=== PATIENT | female | born 1935 | race Caucasian/White ===

== ENCOUNTER → 2016-12-17 | Outpatient (CLI) | payer BC ==
[~2016-12-17] MED LIST: COEN1CAP28 PO; HYDR-5688 PO; LEVO25TA5 PO; MULT-506 PO; OMEG10007 PO; SYN75 PO; VTMD1000 PO; [UNRECOGNIZED DRUG - REMARK] PO; statin drug PO
--- NOTE | 2016-12-18 12:53 | MAMMOGRAPHY REPORT ---
BILATERAL DIGITAL SCREENING MAMMOGRAM WITH CAD: 12/17/2016 CLINICAL HISTORY: Routine screening. Patient has no complaints. TECHNIQUE: Current study was also evaluated with a Computer Aided Detection (CAD) system. Bilatera l CC and MLO views were obtained. COMPARISON: Comparison is made to exams dated: 12/17/2015 mammogram, 12/14/2014 mammogram, 12/13/2013 mammogram, 12/12/2012 mammogram, 12/09/2010 mammogram, and 12/10/2011 mammogram - [facility]. BREAST COMPOSITION: There are scattered areas of fibroglandular density in both breasts. FINDINGS: There is a nodular 5 mm asymmetry seen within the right superior posterior breast on the MLO view only, which could represent an intramammary lymph node although spot compression tomosynthe sis views and possible breast ultrasound are recommended for further evaluation. Additionally, ther e is a questionable area of architectural distortion seen anterior to the asymmetry on the MLO view, for which spot compression tomosynthesis views and possible breast ultrasound are recommended. The remainder of both breasts are stable compared to prior exams, without suspicious masses, calcifi cations, or areas of architectural distortion noted. Bilateral benign-appearing calcifications are not significantly changed. IMPRESSION: ACR BI-RADS CATEGORY 0: INCOMPLETE EVALUATION: NEED ADDITIONAL IMAGING EVALUATION Right breast asymmetry and possible architectural distortion, for which additional imaging evaluatio n is recommended. The patient will be called to schedule an appointment. Approximately 10% of breast cancers are not detected with mammography. A negative mammographic repor t should not delay biopsy if a clinically suggestive mass is present. Irish Hernadez M.D. /:12/17/2016 16:43:16 Meter/Relay Technician: Agueda ANDERSON(R)(M), [facility] letter sent: Addl Imaging 0 BI-RADS Code: ACR BI-RADS Category 0: Incomplete Evaluation: Need Additional Imaging Evaluation
== END | disposition home or self-care (01) ==
LOC: C.MAMM 08:53
PROVIDERS: ATTEND Obstetrics & Gynecology
DX: Z12.31 Encounter for screening mammogram for malignant neoplasm of breast (principal); N64.89 Other specified disorders of breast

== ENCOUNTER → 2016-12-24 | Outpatient (CLI) | payer BC ==
--- NOTE | 2016-12-24 12:55 | MAMMOGRAPHY REPORT ---
UNILATERAL RIGHT DIGITAL DIAGNOSTIC MAMMOGRAM TOMOSYNTHESIS AND TARGETED RIGHT ULTRASOUND: 12/24/2016 CLINICAL HISTORY: 81-year-old woman called back from screening mammography for a 5 mm asymmetry and p ossible architectural distortion in the upper outer quadrant of the right breast. TECHNIQUE: Spot compression right CC and MLO to the digital and tomosynthesis images were obtained. COMPARISON: Comparison is made to exams dated: 12/17/2016 mammogram, 12/17/2015 mammogram, 12/14/2014 m ammogram, 12/13/2013 mammogram, 12/12/2012 mammogram, and 12/10/2011 mammogram - [facility]. BREAST COMPOSITION: There are scattered areas of fibroglandular density in the right breast. FINDINGS: There is persistence of a well-circumscribed, 5.2 x 3.1 mm mass with central lucent notch in the superior posterior right breast on the spot compression MLO view that has the mammographic harry earance of an intramammary lymph node. Further evaluation with ultrasound was performed. 16 mm ante rior to the probable lymph node is persistent architectural distortion with central 6 mm nodularity v ersus mass, and further evaluation with ultrasound was also performed for this finding. No other foc al area of architectural distortion or suspicious microcalcifications are seen in the visualized righ t breast. Targeted ultrasound was performed in the upper outer quadrant of the right breast extending to the ax illa. In the 9:30 axis, 67 m from the nipple, there is a hypoechoic irregular shadowing mass measuri ng 4.0 x 5.0 x 4.1 mm. Subtle architectural distortion is appreciated. Slightly inferior and latera l to the shadowing mass is a morphologically normal lymph node measuring 4.9 mm with a thin cortex me asuring 0.6 mm. This is located in the 9:00 axis, 7 cm from the nipple. Throughout the rest of the visualized right axilla, morphologically normal lymph nodes are seen without suspicious adenopathy. IMPRESSION: ACR BI-RADS CATEGORY 4C: MODERATE SUSPICION FOR MALIGNANCY, TARGETED ULTRASOUND ACR BI-R ADS CATEGORY 4C: MODERATE SUSPICION FOR MALIGNANCY 1. The 5 mm nodular asymmetry in the superior posterior right breast, best seen on the MLO view is t hought to correlate with a morphologically normal intramammary lymph node. Other morphologically nor mal lymph nodes are identified in the right axilla on ultrasound. 2. However, there is a suspicious ill-defined hypoechoic 5mm shadowing mass with associated architec tural distortion in the 9:30 right breast (correlating with the possible architectural distortion see n mammographically) for which ultrasound-guided core needle biopsy is recommended. These results and recommendations were discussed with the patient at the time of the exam. She tenta tively scheduled the right breast biopsy prior to leaving our department. Approximately 10% of breast cancers are not detected with mammography. A negative mammographic report should not delay biopsy if a clinically suggestive mass is present. Savannah Pimentel M.D. ay/:12/24/2016 12:35:00 Wire Brush Maker: Shauna ANDERSON(R)(M), [facility] letter sent: Abnormal 4/5 BI-RADS Code: ACR BI-RADS Category 4C: Moderate Suspicion For Malignancy Ultrasound BI-RADS: ACR BI- RADS Category 4C: Moderate Suspicion For Malignancy
== END | disposition home or self-care (01) ==
LOC: C.MAMM 09:48
PROVIDERS: ATTEND Obstetrics & Gynecology
DX: N64.9 Disorder of breast, unspecified (principal); N63 Unspecified lump in breast

== ENCOUNTER 2017-01-18 07:47 | Observation (INO) | payer BC ==
[2017-01-12 12:49] VITALS: BMI 24.0
[2017-01-12 13:07] LABS: BASO % 0.7 %; BASO ABS # 0.03 K/uL (0-0.2); COMPLETE YES; EOS % 0.9 %; HEMATOCRIT 40.8 % (37-47); LYMPH % 16.5 %; MEAN CELL VOLUME 92.3 fL (80-100); MEAN CORPUSCULAR HEMOGLOBIN 31.2 pg (25-34); MEAN CORPUSCULAR HGB CONC 33.8 g/dl (32-36); MEAN PLATELET VOLUME 9.7 fL (7.4-10.4); MONO % 9.7 %; NEUT % 72.2 %; PLATELET COUNT 225 K/uL (130-400); RED BLOOD COUNT 4.42 M/uL (4.2-5.4); WHITE BLOOD COUNT 4.24 K/uL (4.8-10.8)
--- NOTE | 2017-01-12 13:21 | PAT Medication Instructions ---
Service Date Jan 12, 2017. Current Home Medication List Cholecalciferol (Vitamin D3), 1 TAB PO QAM Coenzyme Q10 (Ubidecarenone) (Co Q10), 1 CAP PO QAM Fish Oil (Otter-3), 1 CAP PO QAM Levothyroxine Sodium (Levothyroxine Sodium), 1 TAB PO QAM Multivitamin (Multivitamin), 1 TAB PO QAM [statin drug], 1 TAB PO QAM Medication Instructions For Your Scheduled Surgery - Continue as directed: [statin drug], 1 TAB PO QAM on Tuesdays - Hold the following medications 2 weeks prior to surgery: Coenzyme Q10 (Ubidecarenone) (Co Q10), 1 CAP PO QAM Fish Oil (Otter-3), 1 CAP PO QAM - Hold the following medications the morning of surgery: Multivitamin (Multivitamin), 1 TAB PO QAM Cholecalciferol (Vitamin D3), 1 TAB PO QAM - Take the following medications the morning of surgery with a sip of water: Levothyroxine Sodium (Levothyroxine Sodium), 1 TAB PO QAM If you have any questions please call us at [phone] or [phone] or [phone]
[2017-01-12 13:36] LABS: BUN/CREATININE RATIO 20.3 (10-20); POTASSIUM 4.5 mmol/L (3.5-5.1)
[2017-01-12 13:39] LABS: CALCIUM 9.5 mg/dl (8.5-10.1)
[2017-01-18] VITALS (8 sets, daily range): BP systolic 135–174; BP diastolic 54–81; PULSE 63–87; TEMP 36.4–36.8; O2SAT 94–96; Ht 160 cm; Wt 61.0 kg
[~2017-01-18] VITALS: Ht 160 cm; Wt 61.0 kg
[~2017-01-18 07:47] MED LIST changes: +CEFAZOLIN 2000 MG/60 ML D5W 60 ML IV SCH; -HYDR-5688 PO; +LACTATED RINGER'S 1000ML 1,000 ML IV SCH; -SYN75 PO; -[UNRECOGNIZED DRUG - REMARK] PO
[2017-01-18] MEDS ORDERED: BUPIVACAINE 0.5 % 5 MG/1 ML MPF 30ML VIAL ONE (09:14)
--- NOTE | 2017-01-18 09:51 | History & Physical Bridge Note ---
H&P Re-Evaluation Bridge Note: I have examined the patient, reviewed the History & Physical and in the interval since the performance of the History & Physical I have noted the following changes of clinical significance: No changes noted
[2017-01-18] MEDS ORDERED: MIDAZOLAM HCL 1 MG/ML 2ML VIAL ONE (10:00)
[2017-01-18] MEDS ORDERED: LIDOCAINE HCL 2% 2 ML VIAL (20MG/ML) ONE (10:00)
[2017-01-18] MEDS ORDERED: PROPOFOL IV EMULSION 10 MG/ML 20 ML VIAL IV ONE (10:00)
[2017-01-18] MEDS ORDERED: FENTANYL CITRATE INJ 50 MCG/1 ML 2 ML VIAL ONE (10:00)
[2017-01-18] MEDS ORDERED: METHYLENE BLUE 0.5% 10 ML VIAL ONE (10:04)
--- NOTE | 2017-01-18 10:17 | DIAGNOSTIC IMAGING REPORT ---
RIGHT BREAST LYMPHOSCINTIGRAPHY CLINICAL HISTORY: Right breast cancer. COMPARISON STUDY: Diagnostic right mammogram December 30, 2016. PROCEDURE: Right breast lymphoscintigraphy was performed. The procedure, risks and benefits were discussed with the patient and informed consent was obtained. The procedure was performed by Dr. Taylor. Skin of the right periareolar region was prepped. A total of 0.504 mCi of Lymphoseek was injected in 5 intradermal aliquots within a right periareolar distribution. No imaging was requested at this time. The patient tolerated the procedure well and no immediate complications were evident. IMPRESSION: Right breast lymphoscintigraphy, as described above. Electronically signed by: Puma Taylor M.D. 01/18/2017 10:16 AM Dictated Date/Time: 01/18/2017 10:14 AM
[2017-01-18] MEDS ORDERED: EpHEDrine SULFATE 50MG/5ML SYR ONE (10:32)
[2017-01-18] MEDS ORDERED: DEXAMETHASONE SOD INJ 4 MG/ML VIAL ONE (10:32)
[2017-01-18] MEDS ORDERED: ONDANSETRON INJ 2 MG/ML 2 ML VIAL ONE (10:32)
[2017-01-18] MEDS ORDERED: KETOROLAC TROMETHAMINE 30 MG/ML VIAL ONE (11:11)
[2017-01-18] MEDS ORDERED: LACTATED RINGER'S 1000ML 1,000 ML IV SCH (11:20)
--- NOTE | 2017-01-18 11:20 | [facility] Post Operative Brief Note ---
Immediate Operative Summary Operative Date Jan 18, 2017. Pre-Operative Diagnosis Rt breast cancer Post-Operative Diagnosis same Procedure(s) Performed Right Breast Lumpectomy with Needle Localization and Right [place] Lymph Node Biopsy Surgeon Dr. Jesse Ca Instrument Designer Surgeon(s) Talha Cárdenas PA-C Estimated Blood Loss 10 cc Findings 2 SLNs - negative Specimens Rt breast tissue and additional deep tissue SLNs Anesthesia gen Complication(s) None Disposition Recovery Room / PACU
[2017-01-18] MEDS ORDERED: HYDROCODONE/ACETAMOPHEN 5/325MG TAB PO PRN ×2 (11:30)
[2017-01-18] MEDS ORDERED: ONDANSETRON INJ 2 MG/ML 2 ML VIAL IV PRN (11:30)
[2017-01-18] MEDS ORDERED: MoRPHine SULFATE 4 MG/ML 1 ML CARP\\VIAL IV PRN (11:30)
[2017-01-18] MEDS ORDERED: MoRPHine SULFATE 2 MG/ML CARP IV PRN (11:30)
--- NOTE | 2017-01-18 11:50 | Anesthesiology Progress Note ---
Anesthesia Post Op Note Date & Time Jan 18, 2017 at 11:49 Vital Signs Pain Intensity: 0 Vital Signs Past 12 Hours Date Time Temp Pulse Resp B/P (MAP) Pulse Ox O2 Delivery O2 Flow Rate FiO2 01/18/17 11:41 163/82 01/18/17 11:39 65 13 100 01/18/17 11:39 66 13 01/18/17 11:36 163/84 01/18/17 11:34 67 16 100 01/18/17 11:34 66 16 01/18/17 11:31 156/82 01/18/17 11:30 148/81 01/18/17 11:29 71 3 01/18/17 11:29 71 3 100 01/18/17 11:29 36.0 71 16 148/81 100 Mask 10 01/18/17 09:22 36.8 66 20 171/73 (105) 96 Room Air Notes Mental Status: alert / awake / arousable, participated in evaluation Pt Amnestic to Procedure: Yes Nausea / Vomiting: adequately controlled Pain: adequately controlled Airway Patency, RR, SpO2: stable & adequate BP & HR: stable & adequate Hydration State: stable & adequate Anesthetic Complications: no major complications apparent
--- NOTE | 2017-01-18 12:21 | OPERATIVE REPORT ---
DATE OF OPERATION: 01/18/2017 PREOPERATIVE DIAGNOSIS: Right breast cancer. POSTOPERATIVE DIAGNOSIS: Same. NAME OF OPERATION: Needle localization right partial mastectomy and sentinel lymph node biopsy. STAFF SURGEON: Dr. Ca. ANESTHESIA: General. ASSISTANTS: Hernesto Cárdenas PA-C. PROCEDURE: The patient was brought in the operating room and placed on the operating table in supine position. The patient's right breast and axilla were prepped and draped in usual fashion. She had been injected for sentinel lymph node biopsy. Incision was made in the right axilla carrying dissection down trying to follow the activity of the probe finding 2 lymph nodes which were felt to be the sentinel lymph nodes. These were removed and sent for frozen section. Frozen section was negative on both nodes. There were no other significant reactive nodes found. At this point during the frozen section, elliptical incision was made around the needle which was lateral in the right breast carrying dissection down around the needle and deep into the breast. The tissue was excised. It was right breast tissue. It was marked with the needle and skin lateral, short silk suture superior, long silk suture inferior and methylene blue on the new deep margin. Additional tissue was taken which included superior, inferior tissue on the deep portion of the site. This tissue was marked with a short silk suture superiorly, long silk suture inferior and then methylene blue was on the new deep margin. Clips were placed and then the deep tissue reapproximated using 2-0 plain catgut suture as well as axilla. Axilla was closed using 4-0 nylon for the skin. The breast tissue was closed by reapproximating the skin with subcuticular 4-0 Monocryl and Steri-Strips. The patient was transferred to recovery room in stable condition. I attest to the content of the Intraoperative Record and any orders documented therein. Any exception s are noted below.
--- NOTE | 2017-01-18 13:17 | MAMMOGRAPHY REPORT ---
NEEDLE LOCALIZATION RIGHT BREAST: 01/18/2017 CLINICAL HISTORY: 81 year-old woman with recent biopsy-proven breast cancer in the 9:30 right breast. She presents for preoperative needle and wire localization prior to surgical excision. COMPARISON: Comparison is made to exams dated: 12/30/2016 mammogram, 12/30/2016 ultrasound biopsy, 017 ultrasound, 12/24/2016 mammogram, 12/17/2016 mammogram, and 12/17/2015 mammogram - [facility] [place]. PATIENT CONSENT: The risks of the procedure were explained to the patient and informed consent was ob tained. The patient denied eating or drinking anything this morning that would preclude anesthesia. She denied allergy to lidocaine. Postprocedure mammograms after the ultrasound-guided core biopsy dated 12/30/2016 were reviewed. The biopsy marker clip and focal area of distortion are the intended target for preoperative localizatio n. With the patient in the left lateral decubitus position, and right arm extended above head, repea t targeted ultrasound was performed in the 9:30 right breast. An ill-defined hypoechoic mass is agai n seen in the 9:30 right breast with associated ribbon-shaped marker clip. This is the target for pr eoperative localization. The skin of the right breast was cleansed with Betadine. 1% buffered lidocaine without epinephrine w as administered as local anesthesia. A 5 cm Ward 2 needle and wire combination was inserted throu gh the hypoechoic mass and the wire was locked in place. The heel of the pablo was located along the posterior aspect of the mass. Post-localization 2-D digital and tomosynthesis images were obtained. There is alignment with the lo calizing needle and wire with the biopsy marker clip to the level of the heel of the pablo. The proce dure including approach and needle length were discussed with the operating surgeon prior to surgery. The specimen radiograph demonstrates the localizing needle and wire, a focal area of architectural di stortion and a ribbon-shaped metallic biopsy marker, compatible with successful preoperative localiza tion and subsequent surgical excision. IMPRESSION: NEEDLE LOCALIZATION Status post successful preoperative needle localization for the biopsy proven right breast carcinoma. The imaged specimen includes the intended abnormalities. Savannah Pimentel M.D. ay/:01/18/2017 11:09:31 Graphic User Interface Designer: Alicia Castillo, [facility]
--- NOTE | 2017-01-18 13:17 | MAMMOGRAPHY REPORT ---
UNILATERAL RIGHT DIGITAL DIAGNOSTIC MAMMOGRAM TOMOSYNTHESIS: 01/18/2017 CLINICAL HISTORY: 81 year-old woman with recent biopsy proven cancer in the 9:30 right breast. Patie nt presents for preoperative localization. Please refer to the report from right breast ultrasound-guided needle localization performed at the s gabrielle time for full detail. IMPRESSION: Please refer to the report from right breast ultrasound-guided needle localization performed at the s gabrielle time for full detail. Approximately 10% of breast cancers are not detected with mammography. A negative mammographic report should not delay biopsy if a clinically suggestive mass is present. Savannah Pimentel M.D. ay/:01/18/2017 08:33:17 Internal Affairs Commander: Alicia Castillo, [facility] BI-RADS Code: n/a
[2017-01-18] MEDS ORDERED: IV FLUIDS COMPLETED PRN (14:00)
--- NOTE | 2017-01-18 16:00 | MAMMOGRAPHY REPORT ---
SPECIMEN: 01/18/2017 CLINICAL HISTORY: Lumpectomy specimen right breast. Please refer to the report from right breast ultrasound-guided needle localization performed at the s gabrielle time for full detail. IMPRESSION: SPECIMEN Please refer to the report from right breast ultrasound-guided needle localization performed at the s gabrielle time for full detail. Savannah Pimentel M.D. ay/:01/18/2017 14:44:17 Scroll Assembler: Alicia Castillo, [facility]
--- NOTE | 2017-01-18 16:10 | Medical Consult ---
Consultation Date of Consultation: Jan 18, 2017. Attending Physician: Jesse Ca M.D. Reason for Consultation: Medical management History of Present Illness 81 y/o F who was admitted for observation earlier today s/p R breast lumpectomy with sentinel node resection. She is doing well post-op. Ate lunch without issue. No chest pain or SOB. Some pain related to her procedure, but minimal. Pt denies fever, abd pain, n/v/c/d, LE pain or swelling. Past Medical/Surgical History Hypothyroidism Hyperlipidemia Social History Smoking Status: Never Smoker Alcohol Use: none Drug Use: none Allergies Coded Allergies: POLLEN (Verified Allergy, Unknown, HAYFEVER, 01/18/17) Statins (Verified Allergy, Unknown, SEVERE MUSCLE ACHES, 01/18/17) Current Inpatient Medications Current Inpatient Medications Medications (Trade) Dose Ordered Sig/Jono Route Start Time Stop Time Status Last Admin Dose Admin Lactated Ringer's 1,000 ml @ 15 mls/hr Q24H IV 01/18/17 06:00 01/18/17 18:00 01/18/17 09:50 15 MLS/HR Cefazolin Sodium 60 ml @ 100 mls/hr PREOP IV 01/18/17 06:00 01/18/17 18:00 01/18/17 10:07 100 MLS/HR Lactated Ringer's 1,000 ml @ 50 mls/hr Q20H IV 01/18/17 11:20 02/17/17 11:19 01/18/17 13:50 50 MLS/HR Cefazolin Sodium 1000 mg/Dextrose 55 ml @ 100 mls/hr Q8H IV 01/18/17 18:00 01/28/17 17:59 Acetaminophen/ Hydrocodone Bitart ([place]osh 5/325 Tab) 1 tab Q4 PRN PO 01/18/17 11:30 02/01/17 11:29 Acetaminophen/ Hydrocodone Bitart ([place]osh 5/325 Tab) 2 tab Q4 PRN PO 01/18/17 11:30 02/01/17 11:29 Morphine Sulfate (MoRPHine SULFATE INJ) 2 mg Q4H PRN IV 01/18/17 11:30 02/01/17 11:29 Morphine Sulfate (MoRPHine SULFATE INJ) 4 mg Q4H PRN IV 01/18/17 11:30 02/01/17 11:29 Ondansetron HCl (Zofran Inj) 4 mg Q6H PRN IV 01/18/17 11:30 02/17/17 11:29 Miscellaneous (Iv Fluids Completed) 1 ea PRN PRN N/A 01/18/17 14:00 01/18/18 13:59 Review of Systems Reviewed and negative Physical Exam Date Time Temp Pulse Resp B/P (MAP) Pulse Ox O2 Delivery O2 Flow Rate FiO2 01/18/17 15:43 36.8 87 18 155/73 (100) 94 Room Air 01/18/17 14:10 36.4 85 12 152/54 (86) 94 Room Air 01/18/17 13:24 36.8 83 18 153/75 (101) 94 Room Air 01/18/17 12:45 36.5 68 16 174/81 (112) 95 01/18/17 12:15 95 Room Air 01/18/17 12:15 95 Room Air 01/18/17 12:15 36.6 73 16 160/74 (102) 95 Room Air 01/18/17 12:07 68 14 99 01/18/17 12:07 69 14 01/18/17 12:06 159/82 01/18/17 12:02 69 12 01/18/17 12:02 68 12 99 01/18/17 12:01 182/83 01/18/17 11:57 65 11 100 01/18/17 11:57 66 11 01/18/17 11:56 171/85 01/18/17 11:52 66 13 01/18/17 11:52 66 13 100 01/18/17 11:52 36.7 64 18 164/88 (102) 100 Nasal Cannula 2 01/18/17 11:51 164/88 01/18/17 11:47 67 15 99 01/18/17 11:47 66 15 01/18/17 11:46 155/82 01/18/17 11:42 66 12 100 01/18/17 11:42 66 12 01/18/17 11:41 163/82 01/18/17 11:39 65 13 100 01/18/17 11:39 66 13 01/18/17 11:36 163/84 01/18/17 11:34 67 16 100 01/18/17 11:34 66 16 01/18/17 11:31 156/82 01/18/17 11:30 148/81 01/18/17 11:29 71 3 01/18/17 11:29 71 3 100 01/18/17 11:29 36.0 71 16 148/81 100 Mask 10 01/18/17 09:22 36.8 66 20 171/73 (105) 96 Room Air General Appearance: WD/WN, no apparent distress Head: normocephalic, atraumatic Eyes: normal inspection, sclerae normal Respiratory/Chest: normal breath sounds, no respiratory distress Cardiovascular: regular rate, rhythm, no edema Abdomen/GI: non tender, soft Extremities/Musculoskelatal: no calf tenderness, no pedal edema Neurologic/Psych: alert, normal mood/affect, oriented x 3 Skin: normal color, warm/dry Assessment & Plan 81 y/o F who was admitted for observation on 01/18 s/p R breast lumpectomy and sentinel node resection R breast lumpectomy/node resxn: as per surgery Resume supplements at their discretion Hypothyroid: resume home meds Hyperlipidemia: resume home meds
[2017-01-18] MEDS: CEFAZOLIN IV 1,000 MG in DEXTROSE 5% 50ML 50 ML IV SCH (17:56)
[2017-01-19] MEDS: CEFAZOLIN IV 1,000 MG in DEXTROSE 5% 50ML 50 ML IV SCH ×2 (01:41→09:01)
[2017-01-19 03:55] VITALS: BP 122/66; PULSE 62; TEMP 36.6; O2SAT 97
[2017-01-19] MEDS ORDERED: HYDR-5688 PO (05:32)
--- NOTE | 2017-01-19 05:33 | Discharge Instructions ---
Discharge Instructions Date of Service Jan 19, 2017. Admission Reason for Admission: Breast Cancer/Hosp Loc W/Lympho Discharge Discharge Diagnosis / Problem: Breast cancer Discharge Goals Goal(s): Decrease discomfort, Improve function, Improve disease control Activity Recommendations Activity Limitations: as noted below Lifting Limitations: no more than 10 pounds Exercise/Sports Limitations: until after follow-up appointment May Resume Sexual Activity: when tolerated Shower/Bathe: tomorrow Driving or Machine Use: resume 3 days after discharge SPECIAL CARE INSTRUCTIONS: * Cover incisions and change daily for comfort/drainage. * May use ibuprofen for pain as tolerated. * Expect some swelling and bruising. Call your doctor if: * Temperature above 101 degrees * Pain not relieved by pain medicine ordered * There is increased drainage or redness from any incision * You have any unanswered questions or concerns [phone]. FOLLOW UP VISIT: If not already scheduled, please call the office for a follow-up visit. for next week- some suture removal OFFICE PHONE NUMBER: Dr. Ca Office . Current Hospital Diet Patient's current hospital diet: Regular Diet Discharge Diet Recommended Diet: Regular Diet Procedures Procedures Performed: Right Breast Lumpectomy with Needle Localization and Right [place] Lymph Node Biopsy Pending Studies Studies pending at discharge: no Medical Emergencies . Who to Call and When: Medical Emergencies: If at any time you feel your situation is an emergency, please call 911 immediately. . Non-Emergent Contact Non-Emergency issues call your: Primary Care Provider, Surgeon . "Provider Documentation" section prepared by Jesse Ca. . VTE Core Measure Inpt VTE Proph given/why not?: SCD's
[2017-01-19] MEDS ORDERED: LEVOTHYROXINE 25 MCG TAB PO SCH (06:00)
[2017-01-19 06:48] LABS: CREATININE 1.1 mg/dl (0.60-1.20)
[2017-01-19 07:12] VITALS: BP 159/78; PULSE 49; TEMP 36.8; O2SAT 96
--- NOTE | 2017-01-19 07:26 | DISCHARGE SUMMARY ---
DATE OF DISCHARGE: 01/19/2017 PRINCIPAL DIAGNOSIS: Right breast cancer. PROCEDURES: The patient underwent needle localization right partial mastectomy with sentinel lymph node biopsy. HISTORY OF PRESENT ILLNESS: The patient is an 81-year-old female who had routine mammography, found with an abnormality in the right breast. Underwent a core biopsy showing invasive carcinoma of the breast. HOSPITAL COURSE: The patient was brought into the hospital on 01/18/2017 where she underwent prior needle localization and then breast injection for sentinel lymph node biopsy. She was taken to the operating room where she underwent a partial mastectomy with sentinel lymph node biopsy. The lymph nodes which were 2 were negative. The patient has done quite well overnight and is felt stable for discharge home today to be seen in the surgical clinic next week.
[2017-01-19 07:56] VITALS: BP 159/78; PULSE 49; TEMP 36.8; O2SAT 96
--- NOTE | 2017-01-19 08:01 | Anesthesiology Progress Note ---
Anesthesia Post Op Note Date & Time Jan 19, 2017 at 08:00 Vital Signs Vital Signs Past 12 Hours Date Time Temp Pulse Resp B/P (MAP) Pulse Ox O2 Delivery O2 Flow Rate FiO2 01/19/17 07:56 36.8 49 18 96 Room Air 01/19/17 07:30 Room Air 01/19/17 07:12 36.8 49 18 159/78 (105) 96 Room Air 01/19/17 03:55 36.6 62 16 122/66 (84) 97 Room Air 01/18/17 23:10 Room Air 01/18/17 23:10 36.7 63 16 135/65 (88) 94 Room Air Notes Mental Status: alert / awake / arousable, participated in evaluation Pt Amnestic to Procedure: Yes Nausea / Vomiting: adequately controlled Pain: adequately controlled Airway Patency, RR, SpO2: stable & adequate BP & HR: stable & adequate Hydration State: stable & adequate Anesthetic Complications: no major complications apparent
[2017-03-31] MEDS ORDERED: [UNRECOGNIZED DRUG - REMARK] PO (15:10)
== END 2017-01-19 09:30 | disposition home or self-care (01) ==
LOC: C.ACU 07:47 → ENRESERV 11:54 → C.MSW 12:41
PROVIDERS: ADMIT Surgery; ATTEND Surgery
DX: C50.911 Malignant neoplasm of unspecified site of right female breast (principal); Z17.0 Estrogen receptor positive status [ER+]; E03.9 Hypothyroidism, unspecified; N81.11 Cystocele, midline; D25.9 Leiomyoma of uterus, unspecified; N95.2 Postmenopausal atrophic vaginitis; Z78.0 Asymptomatic menopausal state; Z79.899 Other long term (current) drug therapy

== ENCOUNTER → 2017-03-31 | Outpatient (CLI) | payer BC ==
[~2017-03-31] MED LIST changes: -CEFAZOLIN 2000 MG/60 ML D5W 60 ML IV SCH; -LACTATED RINGER'S 1000ML 1,000 ML IV SCH; +[UNRECOGNIZED DRUG - REMARK] PO
[2017-03-31 14:53] VITALS: BP_SYST 158; BP_SYST 175; BP_DIAS 70; BP_DIAS 71; PULSE 68; TEMP 37; O2SAT 95
--- NOTE | 2017-03-31 16:21 | Radiation Oncology Follow-Up ---
Radiation Oncology Follow-Up Date of Visit Mar 31, 2017. 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 Last Edited By: Mona Hutton on Mar 10, 2017 08 :01 History of Present Illness Ms. Peoples is an 81-year-old female with a family history of breast cancer. The patient's mother at age 70 from breast cancer. He underwent bilateral digital screening mammogram on 12/17/2015 which was unremarkable. This was repeated on 12/17/2016. This showed a nodular 5 mm asymmetry seen within the right superior posterior breast on the MLO view only. Additional views and spot compression with possible ultrasound were recommended. On 12/24/2016 patient underwent a unilateral right digital diagnostic mammogram and targeted right breast ultrasound. This identified a persistent well-circumscribed 5.2 x 3.1 mm mass located in the superior posterior right breast on spot compression MLO view that had a mammographic appearance of the intra-mammary lymph node. Further evaluation with ultrasound was performed. 16 mm anterior to the probable lymph node is a persistent architectural distortion with a central 6 mm nodularity versus possible mass. Targeted ultrasound was performed in the upper-outer quadrant of the right breast extending to the axilla at the 9:30 axis 6.7 cm from the nipple. A hypoechoic irregular shadowing mass was noted measuring 4.0 x 5.0 x 4.1 mm. Slightly inferior and lateral to the shadowing mass is a morphologically normal lymph node. Throughout the rest of the visualized right axilla there were morphologically normal lymph node seen without suspicious adenopathy. This was given a BI-RADS Category 4C of moderate suspicion for malignancy with recommended biopsy. On 12/30/2016 the patient underwent an ultrasound-guided biopsy of the right breast abnormality. This revealed an infiltrating ductal carcinoma measuring up to 4 mm on the core biopsy specimen. This was a [place] grade 1 of 3 with no lymphovascular invasion identified. No DCIS was identified. Estrogen receptors were positive (90%, strong). Progesterone receptors were positive (40 %, moderate). HER-2/erika overexpression was negative and Ki-67 was 5%. The tumor cells were negative for HER-2/erika by FISH amplification confirming the negative results obtained by IHC. Case: [id number]. Patient went on to see Dr. Jesse Ca who discussed treatment options. Patient opted to proceed with a breast conserving therapy. Therefore on 2016 the patient underwent a needle localization of a right breast partial mastectomy and sentinel node biopsy. This confirmed residual invasive mammary carcinoma oftype with overall grade 2 of 3. The tumor measured 0.8 x 0.7 x 0.5 cm. The invasive carcinoma margins were negative. The distance from the closest margin was 0.1 cm from the inked inferior margin on the initial lumpectomy specimen. Additional deep right breast tissue was taken which if included the inferior margin then a final closest margin would be much greater than 0.1 cm. 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 The DCIS margin was also negative with the distance from the closest margin of 0.3 cm from the superior margin. There was no evidence of lymphovascular invasion and no evidence of perineural invasion. 2 sentinel nodes were identified which were benign without evidence of metastatic carcinoma on routine staining and by immunohistochemistry to cytokeratin. The final AJCC pathologic staging was therefore a pT1b pN0(sn-), ER positive, [place] positive and HER-2/erika negative. Case: [id number]. The patient has been seen by Dr. Carlos Ramos for evaluation and discussion of the role of adjuvant therapy. He discussed the option of treating with Arimidex which she indicated would start following the completion of radiation if she were to receive radiation. We will therefore asked to see the patient to discuss with her the role of adjuvant radiation. She underwent a CT simulation. She was found to be a candidate for accelerated partial breast irradiation. Treatment was completed on 03/03/2017. She received 3850 cGy. Interim History She has been doing well over this past month. She denies any changes to her breast. She has noted no masses or tenderness and no change of the axilla. She had no skin irritation. She use the natural care gel twice daily. She did not note any changes of the skin other than a slight pink discoloration. Allergies Coded Allergies: POLLEN (Verified Allergy, Unknown, HAYFEVER, 01/18/17) Statins (Verified Allergy, Unknown, SEVERE MUSCLE ACHES, 01/18/17) Home Medications Scheduled Cholecalciferol (Vitamin D3), 1 TAB PO QAM Coenzyme Q10 (Ubidecarenone) (Co Q10), 1 CAP PO QAM Fish Oil ([place]-3), 1 CAP PO QAM Levothyroxine Sodium (Levothyroxine Sodium), 1 TAB PO QAM Multivitamin (Multivitamin), 1 TAB PO QAM [Hormonal medication], 1 TAB PO DAILY [statin drug], 1 TAB PO QAM Review of Systems Gastrointestinal: Symptoms: Constipation GI Comments: Constipation manageable at home; Oral: Symptoms: No Problems Respiratory: Symptoms: WNL Urinary: Symptoms: WNL Skin: Symptoms: No Problems Breast: Right Upper Arm Measurement: 29.5 Right Mid Arm Measurement: 22.5 Right Wrist Measurement: 15.0 Left Upper Arm Measurement: 30.5 Left Mid Arm Measurement: 22.5 Left Wrist Measurement: 15.0 Arm Dominence: Right Additional Notes: She completed a distress management report and answered "no" to all questions. Physical Exam Vital Signs Date Time Temp Pulse Resp B/P (MAP) Pulse Ox O2 Delivery O2 Flow Rate FiO2 03/31/17 14:53 37.0 68 12 175/71 95 158/70 Fatigue: None General Appearance: no apparent distress Eyes: normal inspection, EOMI ENT: normal ENT inspection, hearing grossly normal Neck: no adenopathy, thyroid normal Respiratory/Chest: lungs clear, no respiratory distress, no accessory muscle use Breast: Breast examination reveals well-healed incisions of the right breast. There are no masses or tenderness and no axillary adenopathy. There is very minimal fibrocystic changes to palpation. There are no skin retractions or nipple changes. Using the [place] score cosmesis she has a excellent outcome. The left breast showed no masses or tenderness and no axillary adenopathy. Cardiovascular: regular rate, rhythm, no gallop, no murmur Extremities: no pedal edema Neurologic/Psychiatric: no motor/sensory deficits, alert, normal mood/affect Skin: warm/dry Laboratory Studies Test 12/30/16 00:00 01/12/17 12:25 01/19/17 05:57 HER-2 (FISH) See Comment White Blood Count 4.24 K/uL (4.8-10.8) Red Blood Count 4.42 M/uL (4.2-5.4) Hemoglobin 13.8 g/dL (12.0-16.0) Hematocrit 40.8 % (37-47) Mean Corpuscular Volume 92.3 fL (80-100) Mean Corpuscular Hemoglobin 31.2 pg (25-34) Mean Corpuscular Hemoglobin Concent 33.8 g/dl (32-36) Platelet Count 225 K/uL (130-400) Mean Platelet Volume 9.7 fL (7.4-10.4) Neutrophils (%) (Auto) 72.2 % Lymphocytes (%) (Auto) 16.5 % Monocytes (%) (Auto) 9.7 % Eosinophils (%) (Auto) 0.9 % Basophils (%) (Auto) 0.7 % Neutrophils # (Auto) 3.06 K/uL (1.4-6.5) Lymphocytes # (Auto) 0.70 K/uL (1.2-3.4) Monocytes # (Auto) 0.41 K/uL (0.11-0.59) Eosinophils # (Auto) 0.04 K/uL (0-0.5) Basophils # (Auto) 0.03 K/uL (0-0.2) RDW Standard Deviation 44.9 fL (36.4-46.3) RDW Coefficient of Variation 13.4 % (11.5-14.5) Immature Granulocyte % (Auto) 0.0 % Immature Granulocyte # (Auto) 0.00 K/uL (0.00-0.02) Sodium Level 141 mmol/L (136-145) Potassium Level 4.5 mmol/L (3.5-5.1) Chloride Level 107 mmol/L (98-107) Carbon Dioxide Level 27 mmol/L (21-32) Anion Gap 7.0 mmol/L (3-11) Blood Urea Nitrogen 20 mg/dl (7-18) Creatinine 1.00 mg/dl (0.60-1.20) 1.10 mg/dl (0.60-1.20) Est Creatinine Clear Calc Drug Dose 35.1 ml/min 32.6 ml/min Estimated GFR () 60.8 54.1 Estimated GFR (Non- 52.4 46.7 BUN/Creatinine Ratio 20.3 (10-20) Random Glucose 122 mg/dl (70-99) Calcium Level 9.5 mg/dl (8.5-10.1) Assessment & Plan Plan: Patient will continue regular follow-up with her primary care physician. She will follow-up appointment with Dr. Ramos. He'll discuss with her antiestrogen therapy. Today we completed a cancer survivorship care plan. A copy of the document was given to the patient. Mammography was scheduled. She' ll have a digital diagnostic mammogram on the right in 2 months. She'll have bilateral mammography in 8 months. We asked her to return to our office in 6 months. She may call if she has any questions or concerns in the interim. She' ll continue breast self-examination. Total Time In Follow-Up I spent 20 minutes speaking to the patient and performing examination. I spent 20 minutes reviewing information, preparing the survivorship document, and completing this note. Copy To Trace Garza M.D.; Jesse Ca M.D.; Dean Ramos D.O. Problem Qualifiers (1) Breast cancer: Breast location: upper outer quadrant of breast Estrogen receptor status: positive Patient sex: female Laterality: right Qualified Codes: C50.411 - Malignant neoplasm of upper-outer quadrant of right female breast; Z17.0 - Estrogen receptor positive status [ER+]
== END | disposition home or self-care (01) ==
LOC: C.ONC 14:49
PROVIDERS: ATTEND Radiology Radiation Oncology
DX: Z08 Encounter for follow-up examination after completed treatment for malignant neoplasm (principal); Z92.3 Personal history of irradiation; Z85.3 Personal history of malignant neoplasm of breast

== ENCOUNTER → 2017-05-13 | Outpatient (CLI) | payer BC | END | disposition home or self-care (01) | LOC: C.MAMM 13:20 | PROVIDERS: ATTEND Internal Medicine Hematology & Oncology | DX: C50.919 Malignant neoplasm of unspecified site of unspecified female breast (principal); M85.851 Other specified disorders of bone density and structure, right thigh ==

== ENCOUNTER → 2017-06-04 | Outpatient (CLI) | payer BC ==
--- NOTE | 2017-06-04 15:38 | MAMMOGRAPHY REPORT ---
UNILATERAL RIGHT DIGITAL DIAGNOSTIC MAMMOGRAM TOMOSYNTHESIS WITH CAD: 06/04/2017 CLINICAL HISTORY: History of right breast cancer status post lumpectomy December 2016 as well as radiatio n therapy, who presents her first interval follow-up after surgery. The patient reports no current c omplaints. TECHNIQUE: Breast tomosynthesis in addition to standard 2D mammography was performed. Current study was also evaluated with a Computer Aided Detection (CAD) system. Right CC and MLO 2-D and tomosynthe sis images and spot magnification right cc and ML views were obtained. COMPARISON: Comparison is made to exams dated: 01/18/2017 specimen, 01/18/2017 mammogram, 01/18/2017 lo calization, 12/30/2016 mammogram, 12/30/2016 ultrasound biopsy, and 12/24/2016 ultrasound - [facility]. BREAST COMPOSITION: The tissue of the right breast is heterogeneously dense, which may obscure small masses. FINDINGS: There are new post surgical changes in the right upper outer quadrant from prior lumpectomy , including new density, architectural distortion, and surgical clips at the lumpectomy bed. Linear scar markers denote scars on the right upper outer breast. Spot magnification views of the lumpectom y bed demonstrate no suspicious masses or clusters of microcalcifications. The remainder of the righ t breast is stable compared to prior exams, without suspicious masses, calcifications, or areas of ar chitectural distortion noted. IMPRESSION: ACR-BI-RADS CATEGORY 3: PROBABLY BENIGN Expected postsurgical changes in the right breast status post lumpectomy, without mammographic eviden ce of malignancy in the right breast. Recommend bilateral diagnostic tomosynthesis mammograms in [address] [place] [address], to reevaluate the right breast posttreatment changes and for routine mammography of the left b reast. The patient has been verbally notified of the results. Approximately 10% of breast cancers are not detected with mammography. A negative mammographic report should not delay biopsy if a clinically suggestive mass is present. Irish Hernadez M.D. /:06/04/2017 11:14:54 In Processing Instructor: Alicia Castillo, [facility] letter sent: Personal History 3 BI-RADS Code: ACR-BI-RADS Category 3: Probably Benign
== END | disposition home or self-care (01) ==
LOC: C.MAMM 10:47
PROVIDERS: ATTEND Physician Assistant Medical
DX: Z12.31 Encounter for screening mammogram for malignant neoplasm of breast (principal); N64.89 Other specified disorders of breast

== ENCOUNTER → 2017-09-29 | Outpatient (CLI) | payer BC ==
[~2017-09-29] MED LIST changes: +ANAS1TAB19 PO
[2017-09-29 13:33] VITALS: BP 154/79; PULSE 80; TEMP 36.4; O2SAT 95
--- NOTE | 2017-09-29 14:41 | Radiation Oncology Follow-Up ---
Radiation Oncology Follow-Up Date of Visit Sep 29, 2017. 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 Last Edited By: Mona Hutton on Mar 10, 2017 08 :01 History of Present Illness Ms. Peoples has a family history of breast cancer. The patient's mother at age 70 from breast cancer. He underwent bilateral digital screening mammogram on 12/17/2015 which was unremarkable. This was repeated on 12/17/2016. This showed a nodular 5 mm asymmetry seen within the right superior posterior breast on the MLO view only. Additional views and spot compression with possible ultrasound were recommended. On 12/24/2016 patient underwent a unilateral right digital diagnostic mammogram and targeted right breast ultrasound. This identified a persistent well-circumscribed 5.2 x 3.1 mm mass located in the superior posterior right breast on spot compression MLO view that had a mammographic appearance of the intra-mammary lymph node. Further evaluation with ultrasound was performed. 16 mm anterior to the probable lymph node is a persistent architectural distortion with a central 6 mm nodularity versus possible mass. Targeted ultrasound was performed in the upper-outer quadrant of the right breast extending to the axilla at the 9:30 axis 6.7 cm from the nipple. A hypoechoic irregular shadowing mass was noted measuring 4.0 x 5.0 x 4.1 mm. Slightly inferior and lateral to the shadowing mass is a morphologically normal lymph node. Throughout the rest of the visualized right axilla there were morphologically normal lymph node seen without suspicious adenopathy. This was given a BI-RADS Category 4C of moderate suspicion for malignancy with recommended biopsy. On 12/30/2016 the patient underwent an ultrasound-guided biopsy of the right breast abnormality. This revealed an infiltrating ductal carcinoma measuring up to 4 mm on the core biopsy specimen. This was a [place] grade 1 of 3 with no lymphovascular invasion identified. No DCIS was identified. Estrogen receptors were positive (90%, strong). Progesterone receptors were positive (40 %, moderate). HER-2/erika overexpression was negative and Ki-67 was 5%. The tumor cells were negative for HER-2/erika by FISH amplification confirming the negative results obtained by IHC. Case: [id number]. Patient went on to see Dr. Jesse Ca who discussed treatment options. Patient opted to proceed with a breast conserving therapy. Therefore on 2016 the patient underwent a needle localization of a right breast partial mastectomy and sentinel node biopsy. This confirmed residual invasive mammary carcinoma oftype with overall grade 2 of 3. The tumor measured 0.8 x 0.7 x 0.5 cm. The invasive carcinoma margins were negative. The distance from the closest margin was 0.1 cm from the inked inferior margin on the initial lumpectomy specimen. Additional deep right breast tissue was taken which if included the inferior margin then a final closest margin would be much greater than 0.1 cm. 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 The DCIS margin was also negative with the distance from the closest margin of 0.3 cm from the superior margin. There was no evidence of lymphovascular invasion and no evidence of perineural invasion. 2 sentinel nodes were identified which were benign without evidence of metastatic carcinoma on routine staining and by immunohistochemistry to cytokeratin. The final AJCC pathologic staging was therefore a pT1b pN0(sn-), ER positive, [place] positive and HER-2/erika negative. Case: [id number]. The patient has been seen by Dr. Carlos Ramos for evaluation and discussion of the role of adjuvant therapy. He discussed the option of treating with Arimidex which she indicated would start following the completion of radiation if she were to receive radiation. We will therefore asked to see the patient to discuss with her the role of adjuvant radiation. She underwent a CT simulation. She was found to be a candidate for accelerated partial breast irradiation. Treatment was completed on 03/03/2017. She received 3850 cGy. Interim History She has been doing well over this past 6 months. She has noted no changes to the breast. She has noted no masses or tenderness and no change in the axilla. She has had some dryness of the skin. She is up-to-date on mammography. She had a mammogram June 04, 2017. This was of the right breast. This showed expected postsurgical changes in the right breast status post lumpectomy, without mammographic evidence of malignancy in the right breast. Recommend bilateral diagnostic, synthesis mammograms in 6 months, to evaluate the right breast posttreatment changes and for routine mammography of the left breast. This was given a BI-RADS Category 3. She is on Arimidex and denies side effects. She is having no issues with hot flashes or increased joint pains. Allergies Coded Allergies: POLLEN (Verified Allergy, Unknown, HAYFEVER, 01/18/17) Statins (Verified Allergy, Unknown, SEVERE MUSCLE ACHES, 01/18/17) Home Medications Scheduled Anastrozole (Arimidex), 1 TAB PO DAILY Cholecalciferol (Vitamin D3), 1 TAB PO QAM Fish Oil ([place]-3), 1 CAP PO QAM Multivitamin (Multivitamin), 1 TAB PO QAM Review of Systems Gastrointestinal: Symptoms: WNL Oral: Symptoms: No Problems Respiratory: Symptoms: WNL Urinary: Symptoms: WNL Skin: Symptoms: No Problems Breast: Right Upper Arm Measurement: 30.0 Right Mid Arm Measurement: 22.3 Right Wrist Measurement: 15.0 Left Upper Arm Measurement: 30.0 Left Mid Arm Measurement: 22.3 Left Wrist Measurement: 15.0 Arm Dominence: Right Physical Exam Vital Signs Date Time Temp Pulse Resp B/P (MAP) Pulse Ox O2 Delivery O2 Flow Rate FiO2 09/29/17 13:33 36.4 80 16 154/79 95 Fatigue: None General Appearance: no apparent distress Eyes: normal inspection, EOMI ENT: normal ENT inspection, hearing grossly normal Neck: no adenopathy, thyroid normal Respiratory/Chest: lungs clear, no respiratory distress, no accessory muscle use Breast: She has well-healed incisions of the right breast. There is some dryness of the skin in the upper quadrants. There are no masses or tenderness and no axillary adenopathy. She has no skin retractions or nipple changes. Using the [place] score cosmesis she has a good outcome. The left breast showed no masses or tenderness and no axillary adenopathy. Cardiovascular: regular rate, rhythm, no gallop, no murmur Extremities: no pedal edema Neurologic/Psychiatric: no motor/sensory deficits, alert, normal mood/affect Skin: warm/dry Pain Management Patient Reports Pain: No Initial Pain Intensity: 0.0 Pain Management Plan She denied pain therefore requires no pain management. Laboratory Laboratory Results: not applicable Pathology Pathology Results: not applicable Imaging Imaging Studies: were reviewed, and pertinent findings noted below Imaging Comments Patient: YUVAL PEOPLES [facility] Rec: [id number] Address1: [address] [facility] Address2: Acct ID: [id number] Date: 1935 Sex: F Ref Phy: Dariela Bianchi M.D. Att Phy: Mona Hutton PA-C Ana Phy: Trace Garza M.D. Inter Phy: Irish Hernadez MD [facility] Zip: [place] [address] SC: C.MAMM Report #: [id number] Thermostat Repairer: JACK Diagnosis: S/P RADIATION - RIGHT Service Date: 06/04/17 MNE: [id number] Ordering Dr: Mona Hutton PA-C CC: Mona Hutton PA-C CONF: DICTATED BY: Irish Hernadez MD MAMMOGRAPHY REPORT UNILATERAL RIGHT DIGITAL DIAGNOSTIC MAMMOGRAM TOMOSYNTHESIS WITH CAD: 06/04/2017 CLINICAL HISTORY: History of right breast cancer status post lumpectomy December 2016 as well as radiation therapy, who presents her first interval follow-up after surgery. The patient reports no current complaints. TECHNIQUE: Breast tomosynthesis in addition to standard 2D mammography was performed. Current study was also evaluated with a Computer Aided Detection (CAD ) system. Right CC and MLO 2-D and tomosynthesis images and spot magnification right cc and ML views were obtained. COMPARISON: Comparison is made to exams dated: 01/18/2017 specimen, 01/18/2017 mammogram, 01/18/2017 localization, 12/30/2016 mammogram, 12/30/2016 ultrasound biopsy, and 12/24/2016 ultrasound - [facility]. BREAST COMPOSITION: The tissue of the right breast is heterogeneously dense, which may obscure small masses. FINDINGS: There are new post surgical changes in the right upper outer quadrant from prior lumpectomy, including new density, architectural distortion, and surgical clips at the lumpectomy bed. Linear scar markers denote scars on the right upper outer breast. Spot magnification views of the lumpectomy bed demonstrate no suspicious masses or clusters of microcalcifications. The remainder of the right breast is stable compared to prior exams, without suspicious masses, calcifications, or areas of architectural distortion noted. IMPRESSION: ACR-BI-RADS CATEGORY 3: PROBABLY BENIGN Expected postsurgical changes in the right breast status post lumpectomy, without mammographic evidence of malignancy in the right breast. Recommend bilateral diagnostic tomosynthesis mammograms in 6 months, to reevaluate the right breast posttreatment changes and for routine mammography of the left breast. The patient has been verbally notified of the results. Approximately 10% of breast cancers are not detected with mammography. A negative mammographic report should not delay biopsy if a clinically suggestive mass is present. Irish Hernadez M.D. ah/:06/04/2017 11:14:54 Director Of Reimbursement: Alicia Castillo, [facility] letter sent: Personal History 3 BI-RADS Code: ACR-BI-RADS Category 3: Probably Benign Dictated by: Irish Hernadez MD Signed by: Irish Hernadez MD Assessment & Plan Plan: Continue with scheduled mammography. She will have bilateral mammogram in November. She can use [id number] moisturizers for the dryness of the skin. She continues on the aromatase inhibitor. Continue follow-up with medical oncology and her primary care physician. We asked her to return to our office in 1 year. She may call if she has any questions or concerns in the interim. Total Time In Follow-Up I spent 20 minutes speaking to the patient and performing examination. I spent 15 minutes reviewing information and completing this note. Copy To Trace Garza M.D.; Jesse Ca M.D.; Dean Ramos D.O. Problem Qualifiers (1) Breast cancer: Breast location: upper outer quadrant of breast Estrogen receptor status: positive Patient sex: female Laterality: right Qualified Codes: C50.411 - Malignant neoplasm of upper-outer quadrant of right female breast; Z17.0 - Estrogen receptor positive status [ER+]
== END | disposition home or self-care (01) ==
LOC: C.ONC 13:28
PROVIDERS: ATTEND Physician Assistant Medical
DX: Z08 Encounter for follow-up examination after completed treatment for malignant neoplasm (principal); Z92.3 Personal history of irradiation; Z85.3 Personal history of malignant neoplasm of breast

== ENCOUNTER → 2017-11-10 | Outpatient (CLI) | payer BC ==
[~2017-11-10] MED LIST changes: -COEN1CAP28 PO; -LEVO25TA5 PO; -[UNRECOGNIZED DRUG - REMARK] PO; -statin drug PO
--- NOTE | 2017-11-10 15:14 | MAMMOGRAPHY REPORT ---
BILATERAL DIGITAL DIAGNOSTIC MAMMOGRAM TOMOSYNTHESIS WITH CAD AND TARGETED RIGHT ULTRASOUND: 8 CLINICAL HISTORY: History of right breast cancer status post lumpectomy December 2016 as well as radiatio n therapy. The patient reports a sore area in her right lateral breast, which she believes may be mu scular in nature and due to walking her dog. She denies any new palpable lumps. TECHNIQUE: Breast tomosynthesis in addition to standard 2D mammography was performed. Current study was also evaluated with a Computer Aided Detection (CAD) system. Bilateral CC and MLO 2D and tomosyn thesis images and spot magnification right CC and ML views were obtained. COMPARISON: Comparison is made to exams dated: 06/04/2017 mammogram, 01/18/2017 specimen, 01/18/2017 m ammogram, 01/18/2017 localization, 12/30/2016 mammogram, and 12/30/2016 ultrasound biopsy - [facility] [place]. BREAST COMPOSITION: The tissue of both breasts is heterogeneously dense, which may obscure small mas ses. FINDINGS: There are stable post surgical changes in the right upper outer quadrant from prior lumpect frances, including stable density, architectural distortion, and surgical clips at the lumpectomy bed. A benign dystrophic rim calcification is seen at the lumpectomy bed. A square marker macias the site o f pain pointed out by the patient in the right upper outer quadrant. There are no suspicious masses, calcifications, or areas of architectural distortion noted within either breast. Targeted ultrasound was performed of the area of pain pointed out by the patient involving the right upper outer and lower outer quadrants far laterally. No suspicious masses or other suspicious sonogra phic abnormalities are evident. There are expected postsurgical changes in the right 10:00 breast fr om prior lumpectomy, including a small anechoic 3 mm mass at the lumpectomy bed consistent with a sma ll oil cyst. IMPRESSION: ACR-BI-RADS CATEGORY 3: PROBABLY BENIGN, TARGETED ULTRASOUND ACR-BI-RADS CATEGORY 3: PRO BABLY BENIGN No suspicious mammographic or sonographic abnormality at the site of right lateral breast pain pointe d out by the patient. There are stable postsurgical changes in the right breast status post lumpecto my, without mammographic evidence of malignancy in either breast. Recommend follow-up diagnostic alvino osynthesis mammograms of the right breast in 6 months to reevaluate right breast posttreatment change s. Also recommend clinical follow-up for right breast pain. The patient has been verbally notified of the results. Approximately 10% of breast cancers are not detected with mammography. A negative mammographic report should not delay biopsy if a clinically suggestive mass is present. Irish Hernadez M.D. ah/:11/10/2017 13:12:12 County Judge: Alicia Rosario RT(R)(M), [facility] [place] letter sent: Personal History 3 BI-RADS Code: ACR-BI-RADS Category 3: Probably Benign Ultrasound BI-RADS: ACR-BI-RADS Category 3: Pr obably Benign
== END | disposition home or self-care (01) ==
LOC: C.MAMM 12:30
PROVIDERS: ATTEND Family Medicine
DX: N64.4 Mastodynia (principal); N64.9 Disorder of breast, unspecified

== ENCOUNTER → 2017-12-09 | Outpatient (CLI) | payer BC | END | disposition home or self-care (01) | LOC: C.MAMM 08:12 | PROVIDERS: ATTEND Family Medicine | DX: M85.89 Other specified disorders of bone density and structure, multiple sites (principal) ==